=== PATIENT | female | born 1975 | race American Indian/Alaskan Native ===

== ENCOUNTER 2020-12-14 08:03 | Outpatient (CLI) | payer OTHER ==
--- NOTE | 2020-12-14 16:19 | Mammography Report ---
DIGITAL SCREENING MAMMOGRAM WITH CAD, 12/14/2020 CLINICAL INFORMATION / INDICATION: Routine screening mammography. TECHNIQUE: Digital bilateral 2D mammography was obtained in the craniocaudal and mediolateral obliqu e projections. This examination was interpreted with the benefit of Computer-Aided Detection analysis . COMPARISON: None, baseline FINDINGS: Breast Density: The breasts are extremely dense, which lowers the sensitivity of mammography. No dominant mass, suspicious calcifications, or architectural distortion in either breast. However, asymmetric density is seen in the right axilla which probably represents multiple adjacent l ymph nodes though these probably have thickened cortices. IMPRESSION: Asymmetric probable mild right axillary lymphadenopathy Follow up recommendation: Right axillary ultrasound BI-RADS Category 0: Incomplete. Needs additional imaging evaluation and/or prior mammograms for sarah rison. A "normal" or negative report should not discourage follow up or biopsy of a clinically significant f inding. A written summary of these findings will be mailed to the patient. The patient will be entered into a mammography reporting system which will generate a reminder letter for the patient's next appointmen t at the appropriate interval. The [employer] recommends yearly mammograms starting at age 40 and continuing as l leon as a woman is in good health. Breast MRI is recommended for women with an approximate 20-25% or greater lifetime risk of breast cancer, including women with a strong family history of breast or ova jeannine cancer or who have been treated for Hodgkin's disease. Signer Name: Oli Brothers MD Signed: 12/14/2020 4:15 PM Workstation Name: [id number]
== END 2020-12-14 08:04 | disposition home or self-care (01) ==
LOC: SPVWC 08:03
PROVIDERS: ATTEND Obstetrics & Gynecology
DX: Z12.31 Encounter for screening mammogram for malignant neoplasm of breast (principal)
CPT/HCPCS: 77067